=== PATIENT | female | born 1955 | race American Indian/Alaskan Native ===

== ENCOUNTER 2016-11-27 11:10 | Emergency (ER) | payer MEDICARE, BC ==
[2016-11-27 11:47] VITALS: BMI 35.5
[2016-11-27] MEDS ORDERED: Oxycodone/Acetaminophen 5/325 mg Tab PO STA (12:02)
--- NOTE | 2016-11-27 12:04 | ED PDOC ---
Arrival/HPI - General Time Seen by Provider: 11/27/16 11:53 Historian: Patient - History of Present Illness Narrative History of Present Illness (Text): 11/27/16 12:04 61 y/o female, pmh including htn/hyperlpidemia/pre-dm, penicillin allergy, c/o rt. posterior rib cage injury x 3 days with the bilateral lower extremities swelling on and off for the past couple weeks. Pt. stated that she accidentally slipped and landed on the rt. posterior rib cage from the fall 3 days ago, been having pain, painful to move and cough, no neck or back pain, no urinary symptoms, no hematuria. Pt. stated that she has bilateral lower leg swelling and pain for weeks, started to be swelling again this week, no chest pain or shortness of breath, no palpitation, no rash, no night sweat, no fatigue , no difficulty sleeping on the flat bed, no other medical or psychological complaints. Past Medical History - Provider Review Nursing Documentation Reviewed: Yes - Cardiac Hx Coronary Artery Disease: Yes Hx Hyperlipemia: Yes Hx Hypertension: Yes - Pulmonary Hx Asthma: Yes - Neurological Hx Seizures: Yes - HEENT Hx HEENT Disorder: No - Renal Hx Renal Disorder: No - Endocrine/Metabolic Hx Endocrine Disorders: No - Hematological/Oncological Hx Blood Disorders: No - Integumentary Hx Dermatological Disorder: No - Musculoskeletal/Rheumatological Hx Falls: Yes (hx of seizures) - Gastrointestinal Hx Gastrointestinal Disorders: No - Genitourinary/Gynecological Hx Genitourinary Disorders: No - Psychiatric Hx Anxiety: Yes Hx Substance Use: No - Surgical History Hx Orthopedic Surgery: Yes (LEFT HIP REPLACEMENT) - Suicidal Assessment Feels Threatened In Home Enviroment: No Family/Social History - Physician Review Nursing Documentation Reviewed: Yes Family/Social History: Unknown Family HX Smoking Status: Never Smoked Hx Alcohol Use: Yes Hx Substance Use: No Hx Substance Use Treatment: No Allergies/Home Meds Allergies/Adverse Reactions: Allergies penicillin G Allergy (Mild, Verified 11/27/16 12:01) RASH shellfish derived Allergy (Verified 11/27/16 12:01) RASH Home Medications: Home Meds Medication Instructions Recorded Confirmed Albuterol Sulfate [Albuterol Hfa] 0.09 mg IH BID PRN 02/26/14 11/27/16 Alprazolam 0.25 mg PO BID 02/26/14 11/27/16 Aspirin 81 mg PO DAILY 02/26/14 11/27/16 Esomeprazole Magnesium [Nexium] 40 mg PO DAILY 02/26/14 11/27/16 Fluticasone/Salmeterol 250/50 2 puff IH DAILY 02/26/14 11/27/16 [Advair Diskus] Oxybutynin Chloride [Oxybutynin ER] 10 mg PO DAILY 02/26/14 11/27/16 Quinapril Hydrochloride [Quinapril 0 mg PO DAILY 02/26/14 11/27/16 HCl] Sertraline Hydrochloride 100 mg PO BID 02/26/14 11/27/16 Simvastatin [Simvastatin] 20 mg PO HS 02/26/14 11/27/16 carBAMazepine [Tegretol] 200 mg PO TID 02/26/14 11/27/16 Review of Systems - Review of Systems Constitutional: absent: Fatigue, Fevers Eyes: absent: Vision Changes ENT: absent: Hearing Changes Respiratory: absent: SOB, Cough Cardiovascular: Other (+pedal edema). absent: Chest Pain Gastrointestinal: absent: Abdominal Pain, Nausea, Vomiting Musculoskeletal: Arthralgias, Myalgias. absent: Back Pain, Neck Pain, Joint Swelling Skin: absent: Rash, Pruritis Neurological: absent: Headache, Dizziness Physical Exam Vital Signs Reviewed: Yes Vital Signs Temp Pulse Resp BP Pulse Ox 11/27/16 15:00 97.9 F 70 16 153/76 H 95 11/27/16 12:56 78 18 135/72 99 11/27/16 11:46 98.4 F 86 18 134/64 97 Temperature: Afebrile Blood Pressure: Normal Pulse: Regular Respiratory Rate: Normal Appearance: Positive for: Well-Appearing, Non-Toxic, Comfortable Pain Distress: Moderate Mental Status: Positive for: Alert and Oriented X 3 - Systems Exam Head: Present: Atraumatic, Normocephalic Pupils: Present: PERRL Extroacular Muscles: Present: EOMI Conjunctiva: Present: Normal Mouth: Present: Moist Mucous Membranes Neck: Present: Normal Range of Motion Respiratory/Chest: Present: Clear to Auscultation, Good Air Exchange, Tender to Palpation (+ttp on the rt. posterior rib cage region with the skin intact, no laceration or abrasion, no flank discoloration. ). No: Respiratory Distress, Accessory Muscle Use, Wheezes, Decreased Breath Sounds, Rales, Retracting, Rhonchi, Tachypneic Cardiovascular: Present: Regular Rate and Rhythm, Normal S1, S2, Other (1+ pedal edema on the rt. anterior watson, mild pedal edema on lt. anterior watson, skin intact. ). No: Murmurs Abdomen: Present: Normal Bowel Sounds. No: Tenderness, Distention, Peritoneal Signs, Rebound, Guarding Back: Present: Normal Inspection Upper Extremity: Present: Normal Inspection. No: Cyanosis, Edema Lower Extremity: Present: Normal Inspection. No: Edema Neurological: Present: GCS=15, CN II-XII Intact, Speech Normal Skin: Present: Warm, Dry, Normal Color. No: Rashes Psychiatric: Present: Alert, Oriented x 3, Normal Insight, Normal Concentration Medical Decision Making ED Course and Treatment: 11/27/16 12:03 -labs -CT chest/bilateral lower extremities venuous doppler -percocet -observe and reassess 11/27/16 14:47 -Labs are non-significant, BNP within normal limit. -Bilateral lower extremities venuous doppler: as per preliminary report, no acute DVT -CT Chest show 15mm liver lesion which the patient has been told that before. -Pain improved and feeling much better. -Pt. has normal bun/creatine and normal BNP, I will give her hctz short course for the pedal edema that's symptomatic for her. I advised her to eat more banana while taking hctz. -Discharge home with naproxen, hctz, stockings, lidoderm patch, decrease salt intake, elevation, follow up with your own pmd within 2 days, return to the ER for any new or worsening signs or symptoms. - Lab Interpretations Lab Results: 11/27/16 12:20 11/27/16 12:20 Lab Results 11/27/16 12:20: Sodium 141, Potassium 3.6, Chloride 106, Carbon Dioxide 26, Anion Gap 13, BUN 9, Creatinine 0.8, Est GFR ( Amer) > 60, Est GFR (Non- Af Amer) > 60, Random Glucose 106, Calcium 9.2, Total Bilirubin 0.5, AST 41 H, ALT 36, Alkaline Phosphatase 80, NT-Pro-B Natriuret Pep 150, Total Protein 6.9, Albumin 3.8, Globulin 3.2, Albumin/Globulin Ratio 1.2 11/27/16 12:20: WBC 4.8, RBC 4.19, Hgb 12.1, Hct 36.8, MCV 87.8, MCH 28.9, MCHC 32.9, RDW 13.4, Plt Count 236, MPV 9.9, Gran % 62.3, Lymph % (Auto) 27.9, [place] % (Auto) 7.7 H, Eos % (Auto) 1.9, Baso % (Auto) 0.2, Gran # 3.00, Lymph # 1.3, [place] # 0.4, Eos # 0.1, Baso # 0.01 I have reviewed the lab results: Yes Interpretation: No clinic. lab abnormalty - RAD Interpretation Radiology Orders: 11/27/16 12:02 CHEST W/CONTRAST [CT] Stat DUPLEX LOWER EXTRM VEIN BILAT [US] Stat Bilateral lower extremities venuous doppler: as per preliminary report, no acute DVT ---- CT Chest: PROCEDURE: CT Chest with contrast HISTORY: rt. posterior rib cage injury from fall COMPARISON: None. TECHNIQUE: Contiguous axial images were obtained through the chest with intravenous contrast enhancement. Sagittal and coronal reconstructions were performed. IV contrast: 100 cc of Visipaque Radiation dose (DLP): 974 mGy-cm. This CT exam was performed using one or more of the following dose reduction techniques: Automated exposure control, adjustment of the mA and/or kV according to patient size, and/or use of iterative reconstruction technique. FINDINGS: LUNGS: Clear lungs. Visualized airway clear. MEDIASTINUM: Unremarkable thoracic aorta. No aneurysm or dissection. Normal sized heart. Main pulmonary artery unremarkable. No vascular congestion. No lymphadenopathy. PLEURA: No pleural fluid. No pneumothorax. BONES: No fracture. No destructive lesion. UPPER ABDOMEN: There is a 15 mm simple cyst in the left lobe of the liver OTHER FINDINGS: None. IMPRESSION: Unremarkable contrast enhanced CT of the chest. 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 Disposition/Present on Arrival - Present on Arrival Any Indicators Present on Arrival: No History of DVT/PE: No History of Uncontrolled Diabetes: No Urinary Catheter: No History of Decub. Ulcer: No History Surgical Site Infection Following: None - Disposition Have Diagnosis and Disposition been Completed?: Yes Diagnosis: Pedal edema, Accidental fall, Rib injury Disposition: HOME/ ROUTINE Disposition Time: 12:08 Patient Plan: Discharge Condition: IMPROVED Additional Instructions: Discharge home with naproxen, hctz, stockings, lidoderm patch, decrease salt intake, elevation, follow up with your own pmd within 2 days, return to the ER for any new or worsening signs or symptoms. Prescriptions: Comp.stocking,Knee,Long,Large [T.e.d. Anti-Embolism Stocking] 1 each MC DAILY # 1 each hydroCHLOROthiazide [Hydrodiuril] 25 mg PO DAILY PRN #7 tab PRN Reason: Other Lidocaine 5% [Lidoderm] 1 patch TOP DAILY PRN #14 patch PRN Reason: Other Naproxen 500 mg PO BID PRN #20 tab PRN Reason: Other Referrals: Maggie Pulliam DO [Primary Care Provider] - Follow up with primary Forms: WORK NOTE
[2016-11-27 12:31] LABS: BASO # 0.01 K/mm3 (0.0-2.0); BASO % 0.2 % (0.0-3.0); EOS # 0.1 (0.0-0.7); EOS % 1.9 % (1.5-5.0); GRAN % 62.3 % (50.0-68.0); HEMOGLOBIN 12.1 gm/dL (12.0-16.0); LYMPH # 1.3 (1.2-3.4); LYMPH % 27.9 % (22.0-35.0); MEAN CELL VOLUME 87.8 fL (80.0-105.0); MEAN CORPUSCULAR HEMOGLOBIN 28.9 pg (25.0-35.0); MEAN CORPUSCULAR HGB CONC 32.9 g/dl (31.0-37.0); MEAN PLATELET VOLUME 9.9 fl (7.0-11.0); MONO # 0.4 (0.1-0.6); MONO % 7.7 % (1.0-6.0); PLATELET COUNT 236 10^3/uL (120.0-450.0); RBC 4.19 10^6/uL (3.5-6.1); RED CELL DISTRIBUTION WIDTH 13.4 % (11.5-14.5); WHITE BLOOD COUNT 4.8 10^3/ul (4.5-11.0)
[2016-11-27 12:41] LABS: ALB/GLOB RATIO 1.2 (1.1-1.8); ALBUMIN 3.8 g/dL (3.0-4.8); ALT/SGPT 36 U/L (7-56); AST/SGOT 41 U/L (15-39); BLOOD UREA NITROGEN 9 mg/dL (7-21); CALCIUM 9.2 mg/dL (8.4-10.5); GFR AFRICAN-AMERICAN > 60; GFR NON-AFRICAN AMERICAN > 60
[2016-11-27] MEDS ORDERED: Iodixanol 320 MG/ML 100 ML BOTTLE IV ONE (12:49)
[2016-11-27 12:50] LABS: B-TYPE NATRIURETIC PEPTIDE 150 pg/mL (0-450)
--- NOTE | 2016-11-27 14:33 | CT ---
PROCEDURE: CT Chest with contrast HISTORY: rt. posterior rib cage injury from fall COMPARISON: None. TECHNIQUE: Contiguous axial images were obtained through the chest with intravenous contrast enhancement. Sagittal and coronal reconstructions were performed. IV contrast: 100 cc of Visipaque Radiation dose (DLP): 974 mGy-cm. This CT exam was performed using one or more of the following dose reduction techniques: Automated exposure control, adjustment of the mA and/or kV according to patient size, and/or use of iterative reconstruction technique. FINDINGS: LUNGS: Clear lungs. Visualized airway clear. MEDIASTINUM: Unremarkable thoracic aorta. No aneurysm or dissection. Normal sized heart. Main pulmonary artery unremarkable. No vascular congestion. No lymphadenopathy. PLEURA: No pleural fluid. No pneumothorax. BONES: No fracture. No destructive lesion. UPPER ABDOMEN: There is a 15 mm simple cyst in the left lobe of the liver OTHER FINDINGS: None. IMPRESSION: Unremarkable contrast enhanced CT of the chest.
[2016-11-27 15:01] VITALS: BP 153/76; PULSE 70; RESP 16; TEMP 97.9; O2SAT 95
--- NOTE | 2016-11-27 19:15 | US ---
HISTORY: Leg pain and swelling. Evaluate for DVT PHYSICIAN(S): Kartik Fish MD. TECHNIQUE: Duplex sonography and color-flow Doppler with graded compression were used to evaluate the deep venous systems of both lower extremities. The exam is limited by body habitus and edema. FINDINGS: The visualized deep venous systems of both lower extremities are sonographically normal and compressible. Normal wave forms and augmentation are seen. There is no sonographic evidence for deep venous thrombosis in the visualized segments of both lower extremities. IMPRESSION: No sonographic evidence for deep venous thrombosis in the visualized segments of both lower extremities.
== END 2016-11-27 15:15 | disposition home or self-care (01) ==
LOC: ED 11:10
DX: R60.0 Localized edema (principal); S29.9XXA Unspecified injury of thorax, initial encounter; W01.0XXA Fall on same level from slipping, tripping and stumbling without subsequent striking against object, initial encounter; I10 Essential (primary) hypertension; E11.9 Type 2 diabetes mellitus without complications; E78.5 Hyperlipidemia, unspecified; Z88.0 Allergy status to penicillin
CPT/HCPCS: 71260; 80053; 83880; 85025; 93970; 99284; Q9967